=== PATIENT | male | born 1980 | race Two or more races ===

== ENCOUNTER 2020-04-07 16:13 | Emergency (ER) | payer SELFPAY ==
[~2020-04-07] VITALS: Ht 167.6 cm; Wt 77.1 kg
--- NOTE | 2020-04-07 16:15 | NUR ---
ED Nurse Note: Pt brought in by ambulance from the [facility] d/t use of meth and temp of 102.5 orally. HR is elevated in the 120s on arrival. All other vitals stable as documented. Pt A+Ox4, calm and cooperative. Respirations even and unlabored on room air. Pt placed on monitor.
[2020-04-07 16:20] VITALS: BP 158/101
[2020-04-07 16:44] LABS: BASOPHILS % (AUTO) 1.5 % (0.0-2.0); EOSINOPHILS % (AUTO) 0.2 % (0.0-3.0); HEMATOCRIT 44.2 % (42.0-52.0); HEMOGLOBIN 14.5 G/DL (14.2-18.0); LYMPHOCYTES % (AUTO) 8.9 % (20.0-45.0); MEAN CORPUSCULAR VOLUME 92 FL (80-99); NEUTROPHILS % (AUTO) 81.3 % (45.0-75.0); PLATELET COUNT 304 K/UL (150-450); RED BLOOD COUNT 4.82 M/UL (4.70-6.10); RED CELL DISTRIBUTION WIDTH 13.1 % (11.6-14.8); WHITE BLOOD COUNT 11.4 K/UL (4.8-10.8)
[2020-04-07 16:55] LABS: ANION GAP 9 mmol/L (5-15); BLOOD UREA NITROGEN 16 mg/dL (7-18); CALCIUM 8.7 MG/DL (8.5-10.1); CARBON DIOXIDE 27 MMOL/L (21-32); CHLORIDE 101 MMOL/L (98-107); CREATININE 1.1 MG/DL (0.55-1.30); POTASSIUM 3.6 MMOL/L (3.5-5.1); SODIUM 136 MMOL/L (136-145)
--- NOTE | 2020-04-07 17:09 | NUR ---
BRATTICE BUILDER NOTE SW met w/ pt to discuss concern/needs. PT reports he has been homeless since October 2019. Pt was staying in the housing provided by the [employer] Pt left the housing d/t his co-workers' behavioral issues. Pt is currently unemployed, has no income. Pt reports he does not qualify for social welfare. Pt shares his friend gave him a food stamp card to use. Pt has no family/social support. Pt reports he abuses methamphetamine. Pt has hx of residential substance abuse rehab program. SW discussed placement options w/ pt. PT's option is very limited d/t lack of funding. Pt reports he does not consider going to a homeless long term. Pt did not disclose the reason why he does not want to go to a long term. It appears that there is no alternative placement other than homeless shelters. SW explained that the [facility] emergency shelters are open and provide 3 meals. Pt denies having suicidal thought. When this SW asked pt in regards to homicidal thought, pt states he was unsure and has no specific target. Pt reports having auditory and visual hallucination. Pt has appropriate clothing. SW provided the community resource packet and the list of emergency shelters. SW encouraged pt to visit homeless agencies like [facility] and [facility]. Addendum: 04/07/20 at 1719 by DEDRA SPENCER PT is ambulatory w/o DMEs and independent w/ ADLs and IADLs. PT is to be discharged to his preferred location when he is medically cleared.
[2020-04-07 17:11] LABS: ALANINE AMINOTRANSFERASE 50 U/L (12-78); ALBUMIN 4.1 G/DL (3.4-5.0); ALKALINE PHOSPHATASE 76 U/L (46-116); ASPARTATE AMINO TRANSFERASE 44 U/L (15-37); BILIRUBIN,TOTAL 0.9 MG/DL (0.2-1.0)
[2020-04-07] MEDS ORDERED: DiphenhydrAMINE 50mg/ml Inj ONE (17:28)
[2020-04-07] MEDS ORDERED: DiphenhydrAMINE 50mg/ml Inj IVP ONE (17:30)
--- NOTE | 2020-04-07 17:30 | NUR ---
ED Nurse Note: Pt wanted to speak with social work coordinator about discharge. life skills worker called and saw patient. Information on shelters provided.
--- NOTE | 2020-04-07 17:35 | Diagnostic Imaging Report ---
Indication: Chest pain Technique: One view of the chest Comparison: none Findings: Lungs and pleural spaces are clear. Heart size is normal. Impression: No acute process
[2020-04-07 17:43] VITALS: BP 159/99
[2020-04-07 18:01] LABS: APPEARANCE,URINE CLEAR; COLOR,URINE YELLOW
[2020-04-07 18:02] LABS: BILIRUBIN, URINE NEGATIVE (NEGATIVE); GLUCOSE, URINE (UA) NEGATIVE (NEGATIVE); KETONES,URINE 2+ (NEGATIVE); LEUKOCYTE ESTERASE ,URINE NEGATIVE (NEGATIVE); NITRITE,URINE NEGATIVE (NEGATIVE); PROTEIN,URINE NEGATIVE (NEGATIVE); UROBILINOGEN,URINE NORMAL MG/DL (0.0-1.0)
--- NOTE | 2020-04-07 18:16 | Diagnostic Imaging Report ---
EXAM: CT Maxillofacial Without Intravenous Contrast CLINICAL HISTORY: TRAUMA TECHNIQUE: Axial computed tomography images of the face without intravenous contrast. CTDI is 15.3 mGy and DLP is 366.0 mGy-cm. One or more of the following dose reduction techniques were used: automated exposure control, adjustment of the mA and/or kV according to patient size, use of iterative reconstruction technique. COMPARISON: No relevant prior studies available. FINDINGS: Bones/joints: No acute fracture. Soft tissues: Unremarkable. Orbits: Unremarkable. Sinuses: Mild mucosal thickening in the maxillary sinuses. No air- fluid levels. Dental: There are some small periapical lucencies suggesting periodontitis. IMPRESSION: No facial bone fracture.
--- NOTE | 2020-04-07 18:18 | Diagnostic Imaging Report ---
EXAM: CT Head Without Intravenous Contrast CLINICAL HISTORY: TRAUMA TECHNIQUE: Axial computed tomography images of the head/brain without intravenous contrast. CTDI is 53.4 mGy and DLP is 1003.6 mGy-cm. One or more of the following dose reduction techniques were used: automated exposure control, adjustment of the mA and/or kV according to patient size, use of iterative reconstruction technique. COMPARISON: No relevant prior studies available. FINDINGS: Brain: Unremarkable. No hemorrhage. No significant white matter disease. No edema. Ventricles: Unremarkable. No ventriculomegaly. Bones/joints: Unremarkable. No acute fracture. Soft tissues: Unremarkable. Sinuses: Unremarkable as visualized. No acute sinusitis. Mastoid air cells: Unremarkable as visualized. No mastoid effusion. IMPRESSION: No acute intracranial pathology.
--- NOTE | 2020-04-07 18:30 | NUR ---
ED Nurse Note: report given to Neyda Michaels RN
--- NOTE | 2020-04-07 19:19 | NUR ---
HAND-OFF: Report given to Sera QUIROS.
--- NOTE | 2020-04-07 19:30 | NUR ---
ED Nurse Note: Patient is sleeping , easily arousable, vital signs checked and patient is febrile. Will consult with ER provider. Vital signs updated to reflect current status.
[2020-04-07 19:36] VITALS: BP 145/82
--- NOTE | 2020-04-07 21:25 | Emergency Room Report ---
History of Present Illness General Chief Complaint: Substance Abuse Source: Patient (Ross Cornejo) Present Illness HPI 39-year-old male with no known segment past medical history brought in by paramedics due to being tachycardic with heart rate of 1 febrile. Patient admitted to using methamphetamine. Denies any chest pain shortness of breath. Complains of minimal diarrhea. Denies any loss of taste and smell, sore throat. Complains of jaw pain. Denies taking any medication daily basis. Reports that he has been living in the [address]. Patient spoke to the mental health social worker and was given resources to follow-up with. Patient denies any abdominal pain urinary symptoms. Denies all other drug use and tobacco smoke. Denies alcohol intake. Heart rate was normalized after giving IV fluids.Patient elicits that he cannot open and close his jaw however is always able to open his mouth with some discomfort in bilateral TMJ. Head and facial bones appear to be atraumatic. However patient is not a good historian (Ross Cornejo) Allergies: Coded Allergies: No Known Allergies (Unverified , 11/22/14) COVID-19 Screening Contact w/high risk pt: No Experienced COVID-19 symptoms?: Yes COVID-19 Testing performed PHARMACEUTICAL LABORATORY TECHNICIAN: No (Ross Cornejo) Patient History Past Medical History: see triage record Past Surgical History: unable to obtain Pertinent Family History: unable to obtain Social History: Reports: drug use - meth Reviewed Nursing Documentation: PMH: Agreed; PSxH: Agreed (Ross Cornejo) Nursing Documentation-PMH Past Medical History: No Stated History Hx Cardiac Problems: No Hx Hypertension: No Hx Pacemaker: No Hx Asthma: No Hx COPD: No Hx Diabetes: No Hx Cancer: No Hx Gastrointestinal Problems: No Hx Dialysis: No History Of Psychiatric Problem: No Hx Neurological Problems: No Hx Cerebrovascular Accident: No Hx Seizures: No (Ross Cornejo) Review of Systems All Other Systems: negative except mentioned in HPI (Ross Cornejo) Physical Exam Vital Signs Date Time Temp Pulse Resp B/P (MAP) Pulse Ox O2 Delivery O2 Flow Rate FiO2 04/07/20 16:11 102.6 138 18 140/108 (119) 98 Room Air Sp02 EP Interpretation: reviewed, abnormal - HR 130, temp 102.5F General Appearance: no apparent distress, alert, GCS 15, non-toxic Head: normocephalic, atraumatic Eyes: bilateral eye normal inspection, bilateral eye PERRL ENT: hearing grossly normal, normal pharynx, no angioedema, normal voice Neck: full range of motion, supple/symm/no masses Respiratory: chest non-tender, lungs clear, normal breath sounds, no rhonchi, no respiratory distress, no retraction, speaking full sentences Cardiovascular #1: regular rate, rhythm, no edema Cardiovascular #2: 2+ carotid (R), 2+ carotid (L), 2+ radial (R), 2+ radial (L) , 2+ femoral (R), 2+ femoral (L), 2+ dorsalis pedis (R), 2+ dorsalis pedis (L) Gastrointestinal: normal bowel sounds, non tender, soft, non-distended, no guarding, no rebound Rectal: deferred Genitourinary: no CVA tenderness Neurologic: alert, motor strength/tone normal, oriented x3, sensory intact, responsive, speech normal Psychiatric: judgement/insight normal, memory normal, mood/affect normal, no suicidal/homicidal ideation Skin: no rash Lymphatic: no adenopathy (Ross Cornejo) Medical Decision Making PA Attestation All my diagnosis and treatment plans were reviewed ad discussed with my supervising physician Dr. Guerra (Ross Cornejo) Diagnostic Impression: Primary Impression: Methamphetamine abuse Additional Impression: Tachycardia ER Course 39-year-old male with no known segment past medical history brought in by paramedics due to being tachycardic with heart rate of 1 febrile. Patient admitted to using methamphetamine. Denies any chest pain shortness of breath. Complains of minimal diarrhea. Denies any loss of taste and smell, sore throat. Complains of jaw pain. Denies taking any medication daily basis. Reports that he has been living in the street. Patient spoke to the mental health social worker and was given resources to follow-up with. Patient denies any abdominal pain urinary symptoms. Denies all other drug use and tobacco smoke. Denies alcohol intake. Heart rate was normalized after giving IV fluids. Patient elicits that he cannot open and close his jaw however is always able to open his mouth with some discomfort in bilateral TMJ. Head and facial bones appear to be atraumatic. However patient is not a good historian Ddx considered but are not limited to: Tachycardia, [place], coronavirus, methamphetamine abuse Vital signs: are WNL, pt. is afebrile H&PE are most consistent with methamphetamine abuse, tachycardia ORDERS: EKG, Chest XR, CBC, CMP, UA, tox screen, TSH, troponin, head and facial bone CT ED INTERVENTIONS: Tylenol, NS bolus, Benadryl I signed out the patient to at 10PM Patient was evaluated in the context of the global COVID-19 pandemic, which necessitated consideration that the patient might be at risk for infection with the SARS-COV-2 virus that causes COVID-19. Institutional protocols and algorithms that pertain to the evaluation of patients at risk for COVID-19 are in a state of rapid change based on information relieved by multiple regulatory bodies including the CDC and the federal and state organizations. These policies and algorithms were followed during the patient's care in the ED. (Ross Cornejo) ER Course Signed out to me. He presents with bizarre behavior secondary to methamphetamine abuse. He slept for several hours. Now is up around and walking around without any problem. Not suicidal or homicidal. Will discharge home. This patient is a chronic risk of self injury due to poor impulse control, limited coping skills, and judgment intermittently impaired by intoxication. I believe that the available clinical evidence to suggest that these characteristics derived primarily from personality disorder and are likely very stable over time. Hospitalization would likely attenuate risk of self-harm only during jail period, without lasting risk reduction. Serious self-harm , while possible, would likely be inadvertent, and because of impulsivity, and foreseeable. For these reasons, I do not believe hospitalization would provide meaningful reduction in risk of self-harm. (Eliud Lane MD) EKG Diagnostic Results Rate: tachycardiac Rhythm: other - tachy ST Segments: no acute changes Other Impression No acute ST changes (Ross Cornejo) Chest X-Ray Diagnostic Results Chest X-Ray Diagnostic Results : Chest X-Ray Ordered: Yes # of Views/Limited/Complete: 1 View Indication: Other EP Interpretation: Yes PA Xray: Interpretation reviewed, by supervising MD, and agrees with findings. Interpretation: no consolidation, no effusion, no pneumothorax Impression: No acute disease Electronically Signed by: Ross Gonzalez PA-C (Ross Cornejo) CT/MRI/US Diagnostic Results CT/MRI/US Diagnostic Results #1: Imaging Test Ordered: Head CT no contrast Impression COMPARISON: No relevant prior studies available. FINDINGS: Brain: Unremarkable. No hemorrhage. No significant white matter disease. No edema. Ventricles: Unremarkable. No ventriculomegaly. Bones/joints: Unremarkable. No acute fracture. Soft tissues: Unremarkable. Sinuses: Unremarkable as visualized. No acute sinusitis. Mastoid air cells: Unremarkable as visualized. No mastoid effusion. IMPRESSION: No acute intracranial pathology. CT/MRI/US Diagnostic Results #2: Imaging Test Ordered: Facial bone CT no contrast Impression COMPARISON: No relevant prior studies available. FINDINGS: Bones/joints: No acute fracture. Soft tissues: Unremarkable. Orbits: Unremarkable. Sinuses: Mild mucosal thickening in the maxillary sinuses. No air-fluid levels. Dental: There are some small periapical lucencies suggesting periodontitis. IMPRESSION: No facial bone fracture. (Ross Cornejo) Last Vital Signs Date Time Temp Pulse Resp B/P (MAP) Pulse Ox O2 Delivery O2 Flow Rate FiO2 04/07/20 19:36 100.3 94 20 145/82 95 Room Air 94 (Ross Cornejo) Status: improved (Eliud Lane MD) Disposition: HOME, SELF-CARE Condition: Stable Referrals: NOT CHOSEN IPA/,REFERRING (PCP) Patient Instructions: Stimulant Use Disorder-Methamphetamines Additional Instructions: Stop using drugs. Follow-up with your doctor in 7 days. Return if worse. Ross Cornejo Apr 07, 2020 21:[address] MD Apr 08, 2020 04:14
[2020-04-07 22:00] VITALS: BP 143/85
--- NOTE | 2020-04-07 22:00 | NUR ---
ED Nurse Note: Patient sleeping soundly with no s.s of acute distress. Will continue to monitor for reassessment and discharge.
--- NOTE | 2020-04-07 23:05 | NUR ---
ED Nurse Note: Patient still sleeping with no s/s of acute distress.
[2020-04-08 01:00] VITALS: BP 140/83
--- NOTE | 2020-04-08 02:00 | NUR ---
ED Nurse Note: Patient sleeping, patient easily arousable by ERMd. Patient reports no wanting to leave here when questioned about plans for discharge, which is contrary to report as patient saw vp digital marketing social media and crm and was to be given resources upon discharge. Curtis continue to monitor.
[2020-04-08 04:45] VITALS: BP 143/88
[2020-04-08 05:10] VITALS: BP 143/88
--- NOTE | 2020-04-08 05:10 | NUR ---
ELOPEMENT: Patient became upset due to noncompliance with his wishes to be killed and walked out of the ER prior to signing discharge paper work. Patient walked into the street in front of cars, hesistantly. Patient was encouraged to return but proceeded ambulatory, eastbound on [facility]. Patient previously Dc'd IV and did not have a wrist band on.
== END 2020-04-08 05:10 | disposition home or self-care (01) ==
LOC: EDBD 16:13 → EMR 16:25
DX: F15.10 Other stimulant abuse, uncomplicated (principal); R00.0 Tachycardia, unspecified
CPT/HCPCS: 36415; 70450; 70486; 71045; 80053; 80307; 81003; 83605; 84439; 84443; 84481; 84484; 85025; 93005; 96361; 96374; 99284; J1200; J7030; U0002

== ENCOUNTER 2020-04-08 05:35 | Emergency (ER) | payer SELFPAY ==
[2020-04-08] VITALS (9 sets, daily range): BP systolic 128–139; BP diastolic 74–78
[~2020-04-08] VITALS: Ht 160 cm; Wt 68.0 kg
--- NOTE | 2020-04-08 05:43 | Emergency Room Report ---
History of Present Illness General Chief Complaint: Behavioral Complaint Source: Patient, Medical Record (Eliud Lane MD) Source: Patient (PayneEmily mcghee D.O.) Present Illness HPI This is a 39-year-old male who was seen last evening. He presents with bizarre behavior secondary to methamphetamine abuse. He slept through the night and left chest 30 minutes ago. He walked to [facility]: 1 1 saying that he hear voices and wanted her to himself. He has no particular plans. No nausea no vomiting. Said that he does not want to be homeless and staying in the street. He had lab works are unremarkable. Call with testing was negative. Urine drug screen positive for methamphetamine. (Eliud Lane MD) Allergies: Coded Allergies: No Known Allergies (Unverified , 11/22/14) COVID-19 Screening COVID-19 risk:Contact w/high r: No Has patient experienced arshad: No COVID-19 Testing performed PIZZA DELIVERY: No (Eliud Lane MD) Patient History Past Medical History: see triage record, old chart reviewed Past Surgical History: none Family History: none Social History: ETOH, drug use Immunizations: other Reviewed Nursing Documentation: PMH: Agreed; PSxH: Agreed (Eliud Lane MD) Nursing Documentation-PMH Hx Cardiac Problems: No Hx Hypertension: No Hx Pacemaker: No Hx Asthma: No Hx COPD: No Hx Diabetes: No Hx Cancer: No Hx Gastrointestinal Problems: No Hx Dialysis: No Hx Neurological Problems: No Hx Cerebrovascular Accident: No Hx Seizures: No (Eliud Lane MD) Review of Systems ENT: Denies: sore throat Cardiovascular: Denies: chest pain, palpitations Gastrointestinal/Abdominal: Denies: nausea, vomiting, diarrhea Musculoskeletal: Denies: back problems Skin: Denies: rash Neurological: Denies: BAER, seizures All Other Systems: negative except mentioned in HPI (Eliud Lane MD) Physical Exam Vital Signs Date Time Temp Pulse Resp B/P (MAP) Pulse Ox O2 Delivery O2 Flow Rate FiO2 04/08/20 05:35 98.2 76 18 132/76 (94) 99 Room Air Vitals normal Sp02 EP Interpretation: reviewed, normal General Appearance: alert/responsive, no apparent distress, non-toxic Head: normocephalic, atraumatic Eyes: PERRL, EOMI ENT: oropharynx normal Neck: supple/symm/no masses Respiratory: effort normal, no rhonchi, no wheezing Cardiovascular: no murmur, gallop, rub Gastrointestinal: non-tender, no mass, non-distended, no rebound/guarding, normal bowel sounds Musculoskeletal: gait & station normal Neurologic: oriented x3, sensory intact, motor strength/tone normal Skin: no rash, normal palpation (Eliud Lane MD) Sp02 EP Interpretation: reviewed, normal (Emily Payne D.O.) Medical Decision Making Diagnostic Impression: Primary Impression: Methamphetamine abuse Additional Impressions: Suicidal behavior Qualified Codes: R45.89 - Other symptoms and signs involving emotional state Suicidal ideation ER Course Patient presents with methamphetamine abuse. He was fine until he left here. He then went to [facility] and called 911. He is medically clear. Will get psychiatric evaluation. (Eliud Lane MD) ER Course I, Dr Emily Payne, have assumed care of the patient. Initial workup, history , and physical performed by previous provider has been reviewed by myself and I have performed my own physical exam of the patient. 39-year-old male brought in by PD with agitation. Endorses suicidal ideation. Is requesting euthanasia. Is feeling voices telling him to kill himself. States that his plan is to drink gasoline. Otherwise denies homicidal ideation and "he has to". Denies ingestions of Tylenol or salicylates. Patient was previously seen in the ER and medically cleared. He went to 711 and did methamphetamines and was brought back to the ER 1 hour later. He denies any physical complaints at this time. Differential diagnosis includes severe depression, suicidal ideation, bipolar disorder, schizophrenia, drug abuse, drug overdose, among others. The patient denies any suicide attempt, overdose, or ingestion but has +SI. They exhibit no signs of any toxic syndrome or drug / alcohol withdrawal. Labs were ordered for evaluation, and results are reassuring with no evidence of occult overdose, or severe metabolic derangement. EKG is not suggestive for TCA overdose. The patient was observed for a period of time in the ED with serial neurologic exams. PATIENT IS MEDICALLY CLEARED PET/SW consulted for SI. PET placed patient on a hold due to danger to self. After serial neurologic exams in the emergency department, the patient remains clinically sober. They have no focal neurologic deficits and were able to ambulate with a steady gait without assistance. The patients presentation seems to be consistent with suicidal ideation, without any complications such as suicide attempt or overdose. The patient appears to be stable for transfer to a psychiatric facility for further psychiatric evaluation and care, without any obvious medical etiology for their symptoms. fruit farmworker was consulted to assist with placement into an inpatient psychiatric team, and the patient is awaiting evaluation and placement on a psychiatric hold by the PET team. Care signed out to oncoming ER physician pending psychiatric placement. (Emily Payne D.O.) ER Course Assumed care of the patient approximately 2300 hrs. 39-year-old male on 5150 hold for suicidal ideation awaiting placement to psychiatric facility. Medically cleared for psychiatric evaluation. Patient is been accepted to [facility]. Will arrange transport. (Adien Segura MD) EKG Diagnostic Results PA Scribe Text 12-lead EKG (interpreted by me) Time: 1619 Indication: Rhythm analysis Tracing visualized and Interpreted by me. Rhythm: Sinus tachycardia Rate: 116 bpm QTc: 417 Morphology: No_significant_ST_elevations_or_depressions, No STEMI Impression: sinus tachycardia (Emily Payne D.O.) Last Vital Signs Date Time Temp Pulse Resp B/P (MAP) Pulse Ox O2 Delivery O2 Flow Rate FiO2 04/08/20 05:35 98.2 76 18 132/76 (94) 99 Room Air Status: improved (Eliud Lane MD) Reevaluation Time: 06:23 Status: improved (Emily Payne D.O.) Disposition: PSYCH HOSP/UNIT Admit Decision Time: 06:23 (Emily Payne D.O.) Condition: Stable Eliud Lane MD Apr 08, 2020 05:43 Emily Payne D.O. Apr 08, 2020 06:23 Aiden Segura MD Apr 08, 2020 23:25
[2020-04-09 03:15] VITALS: BP 122/83
[2020-04-09 03:30] VITALS: BP 128/76
== END 2020-04-09 03:30 | disposition short-term general hospital (02) ==
LOC: EDBD 05:35 → EMR 05:50
DX: F15.10 Other stimulant abuse, uncomplicated (principal); R45.851 Suicidal ideations; R00.0 Tachycardia, unspecified
CPT/HCPCS: 36415; 99285; G0480